=== PATIENT | male | born 1975 | race Caucasian/White ===

== ENCOUNTER 2017-05-11 02:17 | Emergency (ER) | payer SELFPAY ==
--- NOTE | 2017-05-11 02:37 | EDPHY ---
H & P Stated Complaint: suicidal Source: Patient - Personal History Current Tetanus/Diphtheria Vaccine: Unsure - Medical/Surgical History Hx Asthma: No Hx Chronic Respiratory Disease: No Hx Diabetes: No Hx Cardiac Disease: No Hx Renal Disease: No Hx Cirrhosis: No Hx Alcoholism: No Hx HIV/AIDS: No Hx Splenectomy or Spleen Trauma: No Other PMH: PMHx: multiple concussions, hip injury, back injury, bilat knee injuries HPI/ROS: HPI CHIEF COMPLAINT: Suicidal ideation, combative and aggressive behavior requiring hand cuffing and spit mask, M1 hold by police HISTORY OF PRESENT ILLNESS: This patient is a 42-year-old male who presents emergency room in [facility], [place] with a spit mass after getting acutely agitated and aggressive with EMS and police at his residence. They were called to his house after he was agitated and aggressive with his throwing things all around the house. Reported by Ems and police that he is suicidal. He has a Plan to take an overdose of his Klonopin and drive blind folded to kill himself. Patient upon arrival to the emergency room is Angry, he is on M1 hold. He is calming down slowly. He requested not to talk to me and would not give me any information. He is agreeable on blood draw and urine drug screen. He is on M1 hold by police. The police to report to me that they have great concern if he does get released. They concerned about the anger he direct towards his . If he does get released from the emergency room police would like to be notified so that they can contact his said that his can seek alternative living situation. 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 Exam Constitutional initially acutely agitated with aggressive behavior in a spit mask, triage nursing summary reviewed, vital signs reviewed, awake/alert. Eyes normal conjunctivae and sclera, EOMI, PERRLA. HENT normal inspection, atraumatic, moist mucus membranes, no epistaxis, neck supple/ no meningismus, no raccoon eyes. Respiratory clear to auscultation bilaterally, normal breath sounds, no respiratory distress, no wheezing. Cardiovascular rate normal, regular rhythm, no murmur, no edema, distal pulses normal. Gastrointestinal soft, non-tender, no rebound, no guarding, normal bowel sounds, no distension, no pulsatile mass. Genitourinary no CVA tenderness. Musculoskeletal no midline vertebral tenderness, full range of motion, no calf swelling, no tenderness of extremities, no meningismus, good pulses, neurovascularly intact. Skin pink, warm, & dry, no rash, skin atraumatic. Neurologic awake, alert and oriented x 3, AAOx3, moves all 4 extremities equally, motor intact, sensory intact, CN II-XII intact, normal cerebellar, normal vision, normal speech. Psychiatric angry, aggressive. Heme/Lymph/Immune no lymphadenopathy. Differential Diagnosis: Includes but is not limited to in a particular order M1 hold for suicidal ideation, oppositional defiant disorder, explosive anger disorder, underlying other psychiatric illness including mood disorder, bipolar disorder, schizophrenia, drug intoxication Medical Decision Making: At this time is unclear his medical history will not tell me anything. He is not answering any of my questions. He is on M1 hold. Will obtain blood work for medical clearance. Re-evaluation: 0519AM: Patient's comma this time. Resting. He is medically cleared at this time. He needs mental health evaluation. 0641AM: Patient is signed over to Dr. Tay at 7:00 a.m. shift change. Patient needs mental health evaluation. (Quirino Medina) Constitutional: Initial Vital Signs Temperature (C) 36.9 C 05/11/17 02:31 Heart Rate 102 H 05/11/17 02:31 Respiratory Rate 16 05/11/17 02:31 Blood Pressure 140/91 H 05/11/17 02:31 O2 Sat (%) 95 05/11/17 02:31 O2 Delivery Mode Room Air Home Medications: Medication Instructions Recorded clonazePAM [klonoPIN (*)] 2 mg PO BID PRN 05/11/17 traZODone [traZODone 150MG (*)] 150 mg PO HS PRN 05/11/17 Medical Decision Making Other Provider: I assumed care of the patient at 0700 AM pending psychiatric disposition. 8:00 a.m.: Patient has been accepted for inpatient psychiatric hospitalization at [facility] Adan Smith. Update at 10:30 a.m.: The patient has been decline for inpatient admission by the unit at [facility] secondary to concerns about the patient' s aggressive behavior. Update at 1:00 p.m.: Patient has been accepted at [facility] by Dr. Young. I have filled out the EMTALA transfer paperwork (Miller Tay) - Data Points Laboratory Results: Laboratory Results 05/11/17 02:30 05/11/17 02:30 05/11/17 05/11/17 05/11/17 03:30 02:30 02:30 WBC 9.62 10^3/uL H 10^3/uL (3.80-9.50) RBC 4.80 10^6/uL 10^6/uL (4.40-6.38) Hgb 14.8 g/dL g/dL (13.7-17.5) Hct 41.3 % % (40.0-51.0) MCV 86.0 fL fL (81.5-99.8) MCH 30.8 pg pg (27.9-34.1) MCHC 35.8 g/dL g/dL (32.4-36.7) RDW 12.3 % % (11.5-15.2) Plt Count 204 10^3/uL 10^3/uL (150-400) MPV 9.7 fL fL (8.7-11.7) Neut % (Auto) 50.9 % % (39.3-74.2) Lymph % (Auto) 40.9 % % (15.0-45.0) Hooker % (Auto) 6.1 % % (4.5-13.0) Eos % (Auto) 1.2 % % (0.6-7.6) Baso % (Auto) 0.7 % % (0.3-1.7) Nucleat RBC Rel Count 0.0 % % (0.0-0.2) Absolute Neuts (auto) 4.89 10^3/uL 10^3/uL (1.70-6.50) Absolute Lymphs (auto) 3.93 10^3/uL H 10^3/uL (1.00-3.00) Absolute Monos (auto) 0.59 10^3/uL 10^3/uL (0.30-0.80) Absolute Eos (auto) 0.12 10^3/uL 10^3/uL (0.03-0.40) Absolute Basos (auto) 0.07 10^3/uL 10^3/uL (0.02-0.10) Absolute Nucleated RBC 0.00 10^3/uL 10^3/uL (0-0.01) Immature Gran % 0.2 % % (0.0-1.1) Immature Gran # 0.02 10^3/uL 10^3/uL (0.00-0.10) Sodium 139 mEq/L mEq/L (134-144) Potassium 3.5 mEq/L mEq/L (3.5-5.2) Chloride 103 mEq/L mEq/L (97-110) Carbon Dioxide 21 mEq/l L mEq/l (22-31) Anion Gap 15 mEq/L mEq/L (8-16) BUN 14 mg/dL mg/dL (7-23) Creatinine 1.1 mg/dL mg/dL (0.7-1.3) Estimated GFR > 60 Glucose 116 mg/dL H mg/dL (70-100) Calcium 9.8 mg/dL mg/dL (8.5-10.4) Salicylates < 1.0 mg/dL L mg/dL (2.0-20.0) Urine Opiates Screen NEGATIVE (NEGATIVE) Acetaminophen < 10 mcg/mL L mcg/mL (10.0-30.0) Urine Barbiturates NEGATIVE (NEGATIVE) Ur Phencyclidine Scrn NEGATIVE (NEGATIVE) Ur Amphetamine Screen NEGATIVE (NEGATIVE) U Benzodiazepines Scrn NEGATIVE (NEGATIVE) Urine Cocaine Screen NEGATIVE (NEGATIVE) U Marijuana (THC) Screen NON-NEGATIVE H (NEGATIVE) Ethyl Alcohol < 10 mg/dL mg/dL (0-10) Medications Given: Discontinued Medications Olanzapine (Zyprexa Im Injection) 10 mg IM EDNOW ONE Stop: 05/11/17 08:22 Last Admin: 05/11/17 08:31 Dose: 10 mg Departure - Departure Disposition: Other Psych, Not [facility] Clinical Impression: Suicidal ideation Condition: Fair Referrals: Patient,NotPresent [Unknown] - As per Instructions
[2017-05-11 02:39] LABS: % IMMATURE GRANULYOCYTES 0.2 % (0.0-1.1); ABSOLUTE IMMATURE GRANULOCYTES 0.02 10^3/uL (0.00-0.10); ADD DIFF? NO; ADD MORPH? NO; ADD SCAN? NO; ATYPICAL LYMPHOCYTE FLAG 0 (0-99); FRAGMENT RBC FLAG 0 (0-99); HEMATOCRIT 41.3 % (40.0-51.0); HEMOGLOBIN 14.8 g/dL (13.7-17.5); LEFT SHIFT FLG 0 (0-99); LIPEMIA HEMOLYSIS FLAG 90 (0-99); MEAN CELL HEMOGLOBIN 30.8 pg (27.9-34.1); MEAN CELL HEMOGLOBIN CONCENTR. 35.8 g/dL (32.4-36.7); MEAN PLATELET VOLUME 9.7 fL (8.7-11.7); PLATELET CLUMPS FLAG 0 (0-99); PLATELET COUNT 204 10^3/uL (150-400); RED CELL DISTRIBUTION WIDTH 12.3 % (11.5-15.2)
[2017-05-11 02:58] LABS: ANION GAP 15 mEq/L (8-16); CALCIUM 9.8 mg/dL (8.5-10.4); CARBON DIOXIDE 21 mEq/l (22-31); CHLORIDE 103 mEq/L (97-110); CREATININE 1.1 mg/dL (0.7-1.3); ETHANOL SERUM < 10 mg/dL (0-10); GLOMERULAR FILTRATION RATE > 60; GLUCOSE 116 mg/dL (70-100); POTASSIUM 3.5 mEq/L (3.5-5.2); SALICYLATE < 1.0 mg/dL (2.0-20.0); SODIUM 139 mEq/L (134-144)
[2017-05-11] MEDS ORDERED: OLANZapine 10 MG/2 ML VIAL IM ONE (08:21)
[2017-05-11 12:13] VITALS: O2SAT 96
[2017-05-11 14:33] VITALS: BP 142/76; PULSE 78; RESP 18; TEMP 97.9
== END 2017-05-11 15:50 ==
DX: R45.851 Suicidal ideations (principal)
CPT/HCPCS: 80305; G0480